=== PATIENT | male | born 1985 | race Caucasian/White ===

== ENCOUNTER 2017-04-05 02:14 | Emergency (ER) | payer SELFPAY ==
[~2017-04-05] VITALS: Ht 167.6 cm; Wt 71.0 kg
[2017-04-05 02:16] VITALS: Ht 167.6 cm; Wt 71.0 kg
[2017-04-05] MEDS ORDERED: ONDANSETRON (ODT) 4 MG TAB ODT STA (04:30)
[2017-04-05] MEDS ORDERED: BELLADONNA/PHENOBARBITAL TAB PO ONE (04:30)
[2017-04-05] MEDS ORDERED: LIDOCAINE/MYLANTA 40 ML BTL PO ONE (04:30)
--- NOTE | 2017-04-05 05:46 | ERD ---
ER Documentation Chief Complaint Date/Time DATE: 04/05/17 TIME: 05:45 Chief Complaint bib ambulance epigastric pain w/ anxiety symptoms HPI 32-year-old male brought in by ambulance for epigastric abdominal pain and anxiety symptoms. Patient denies any fevers or chills. Mild nausea but no vomiting. No other current complaints. Pain is mild to moderate in intensity burning in sensation located in the epigastric region ROS All systems reviewed and are negative except as per history of present illness. Allergies Allergies: Coded Allergies: No Known Allergy (Unverified , 05/15/14) PMhx/Soc Medical and Surgical Hx: pt denies Surgical Hx Hx Miscellaneous Medical Probl: Yes (peptic ulcer ds) Hx Alcohol Use: No Hx Substance Use: No Hx Tobacco Use: No Smoking Status: Never smoker Physical Exam Vitals Vital Signs Date Time Temp Pulse Resp B/P Pulse Ox O2 Delivery O2 Flow Rate FiO2 04/05/17 02:16 98.7 110 20 153/84 100 Physical Exam Const: [] Head: Atraumatic Eyes: Normal Conjunctiva ENT: Normal External Ears, Nose and Mouth. Neck: Full range of motion..~ No meningismus. Resp: Clear to auscultation bilaterally Cardio: Regular rate and rhythm, no murmurs Abd: Soft, non tender, non distended. Normal bowel sounds Skin: No petechiae or rashes Back: No midline or flank tenderness Ext: No cyanosis, or edema Neur: Awake and alert Psych: Normal Mood and Affect Results 24 hrs Current Medications Medications (Trade) Dose Ordered Sig/Tanvi Route PRN Reason Start Time Stop Time Status Last Admin Dose Admin Miscellaneous Medication (Gi Cocktail (2)) 40 ml ONCE ONCE PO 04/05/17 04:30 04/05/17 04:42 DC 04/05/17 04:53 Belladonna/ Phenobarbital () 2 tab ONCE ONCE PO 04/05/17 04:30 04/05/17 04:42 DC 04/05/17 04:53 Ondansetron HCl (Zofran Odt) 4 mg ONCE STAT ODT 04/05/17 04:30 04/05/17 04:42 DC 04/05/17 04:53 Procedures/MDM Medical decision-makin-year-old male with epigastric abdominal consistent with acute gastritis. At this point clinically stable. Patient will be admitted discharged home. Told to follow-up here in 8 hours for serial abdominal exams Departure Diagnosis: Primary Impression: Epigastric pain Condition: Stable [place]AMAN Apr 05, 2017 05:46
[2017-04-05] MEDS ORDERED: RANI150T9 PO (05:47)
[2017-04-05] MEDS ORDERED: ONDA4TAB14 PO (05:47)
[2017-04-05 06:08] VITALS: BP 126/72; PULSE 64; RESP 16; TEMP 98.2
== END 2017-04-05 07:43 | disposition home or self-care (01) ==
LOC: E/R 02:14
DX: R10.13 Epigastric pain (principal); R11.0 Nausea
CPT/HCPCS: 99283

== ENCOUNTER 2018-01-23 07:27 | Emergency (ER) | END 2018-01-23 09:03 | disposition home or self-care (01) ==

== ENCOUNTER 2018-02-16 03:50 | Emergency (ER) | END 2018-02-16 07:45 | disposition home or self-care (01) ==

== ENCOUNTER 2018-03-08 03:45 | Emergency (ER) | END 2018-03-08 05:42 | disposition home or self-care (01) ==

== ENCOUNTER 2018-04-21 02:41 | Emergency (ER) | END 2018-04-21 05:59 | disposition home or self-care (01) ==

== ENCOUNTER 2018-07-01 04:38 | Emergency (ER) | END 2018-07-01 05:50 | disposition home or self-care (01) ==

== ENCOUNTER 2018-10-16 02:47 | Emergency (ER) | payer SELFPAY ==
[~2018-10-16] VITALS: Ht 157.5 cm; Wt 68.2 kg
[~2018-10-16 02:47] MED LIST: BISA-57 PR; FLEETPED PR; PANT40TA3 PO; POLY17PO6 PO
[2018-10-16 03:09] VITALS: BP 146/92; PULSE 87; RESP 18; Ht 157.5 cm; Wt 68.2 kg
[2018-10-16] MEDS ORDERED: ONDANSETRON (ODT) 4 MG TAB ODT STA (04:46)
[2018-10-16] MEDS ORDERED: FAMOTIDINE 20 MG TAB PO ONE (05:00)
[2018-10-16] MEDS ORDERED: PANT40TA3 PO (05:41)
[2018-10-16] MEDS ORDERED: METO10TA92 PO (05:41)
[2018-10-16] MEDS ORDERED: ACET500C5 PO (05:41)
--- NOTE | 2018-10-16 05:44 | ERD ---
ER Documentation Chief Complaint Chief Complaint precordial/epigastric/upper back pains w/on/off arm tingling just now HPI 33-year-old male presents with epigastric pain radiating to his chest for the last several days. He has a history of hiatal hernia. An endoscopy in July. He is not currently taking any proton pump inhibitors. He was treated for the last 3 months for H. pylori. Denies fevers, lower abdominal pain, diarrhea. Has had nausea but no vomiting. Denies black or tarry stools or blood per rectum. ROS All systems reviewed and are negative except as per history of present illness. Medications Home Meds Active Scripts Metoclopramide* (Reglan*) 10 Mg Tablet, 10 MG PO Q6 PRN for NAUSEA AND/OR VOMITING, #20 TAB Prov:JOHNNY ADAN MD 10/16/18 Acetaminophen* (Tylophen*) 500 Mg Capsule, 1 CAP PO Q6H PRN for PAIN AND OR ELEVATED TEMP, #20 CAP Prov:JOHNNY ADAN MD 10/16/18 Pantoprazole* (Protonix*) 40 Mg Tablet., 40 MG PO DAILY, #20 TAB Prov:JOHNNY ADAN MD 10/16/18 Pantoprazole* (Protonix*) 40 Mg Tablet., 40 MG PO DAILY, #20 TAB Prov:LAURENT TIPTON MD 07/01/18 Polyethylene Glycol* (Miralax*) 17 Gm Powd.pack, 17 GM PO DAILY, #7 Prov:LAURENT TIPTON MD 07/01/18 Sod Phosphate/Sod Biphosphate* (Fleet* Enema Pediatric) 66.6 Ml Soln, 66.6 ML DC DAILY PRN for CONSTIPATION, #2 ENEMA Prov:LAURENT TIPTON MD 07/01/18 Bisacodyl* (Dulcolax*) 5 Mg Tablet., 10 MG DC DAILY PRN for CONSTIPATION, #5 TAB Prov:LAURENT TIPTON MD 07/01/18 Pantoprazole* (Protonix*) 40 Mg Tablet., 40 MG PO DAILY, #20 TAB Prov:LAURENT TIPTON MD 04/21/18 Allergies Allergies: Coded Allergies: No Known Allergy (Unverified , 05/15/14) PMhx/Soc Medical and Surgical Hx: pt denies Surgical Hx Hx Miscellaneous Medical Probl: Yes (peptic ulcer ds) Hx Alcohol Use: No Hx Substance Use: No Hx Tobacco Use: No Smoking Status: Never smoker FmHx Family History: No diabetes, No coronary disease, No other Physical Exam Vitals Vital Signs Date Temp Pulse Resp B/P (MAP) Pulse Ox O2 O2 Flow FiO2 Time Delivery Rate 10/16/18 97.5 87 18 146/92 100 03:09 (110) Physical Exam Const: No acute distress Head: Atraumatic Eyes: Normal Conjunctiva ENT: Normal External Ears, Nose and Mouth. Neck: Full range of motion. No meningismus. Resp: Clear to auscultation bilaterally. Mild tenderness in the epigastric area. No tenderness McBurney's point no Shin sign. Cardio: Regular rate and rhythm, no murmurs Abd: Soft, non tender, non distended. Normal bowel sounds Skin: No petechiae or rashes Back: No midline or flank tenderness Ext: No cyanosis, or edema Neur: Awake and alert Psych: Normal Mood and Affect Result Diagram: 10/16/187 10/16/18 0457 Results 24 hrs Laboratory Tests Test 10/16/18 04:57 White Blood Count 6.4 10^3/ul Red Blood Count 5.11 10^6/ul Hemoglobin 15.3 g/dl Hematocrit 44.2 % Mean Corpuscular Volume 86.5 fl Mean Corpuscular Hemoglobin 29.9 pg Mean Corpuscular Hemoglobin Concent 34.6 g/dl Red Cell Distribution Width 12.5 % Platelet Count 225 10^3/UL Mean Platelet Volume 9.3 fl Immature Granulocytes % 0.300 % Neutrophils % 59.2 % Lymphocytes % 31.4 % Monocytes % 8.4 % Eosinophils % 0.2 % Basophils % 0.5 % Nucleated Red Blood Cells % 0.0 /100WBC Immature Granulocytes # 0.020 10^3/ul Neutrophils # 3.8 10^3/ul Lymphocytes # 2.0 10^3/ul Monocytes # 0.5 10^3/ul Eosinophils # 0.0 10^3/ul Basophils # 0.0 10^3/ul Nucleated Red Blood Cells # 0.0 10^3/ul Sodium Level 143 mmol/L Potassium Level 3.6 mmol/L Chloride Level 103 mmol/L Carbon Dioxide Level 28 mmol/L Anion Gap 12 Blood Urea Nitrogen 15 mg/dl Creatinine 0.70 mg/dl Est Glomerular Filtrat Rate mL/min > 60 mL/min Glucose Level 92 mg/dl Calcium Level 10.1 mg/dl Total Bilirubin 0.4 mg/dl Direct Bilirubin 0.00 mg/dl Indirect Bilirubin 0.4 mg/dl Aspartate Amino Transf (AST/SGOT) 34 IU/L Alanine Aminotransferase (ALT/SGPT) 35 IU/L Alkaline Phosphatase 83 IU/L Total Protein 7.9 g/dl Albumin 4.9 g/dl Globulin 3.00 g/dl Albumin/Globulin Ratio 1.63 Lipase 54 U/L Current Medications Medications Dose Sig/Tanvi Start Time Status Last (Trade) Ordered Route PRN Stop Time Admin Dose Reason Admin Ondansetron 8 mg ONCE STAT 10/16/18 DC 10/16/18 HCl (Zofran ODT 04:46 04:58 Odt) 10/16/18 04:48 Famotidine 20 mg ONCE ONCE 10/16/18 DC 10/16/18 (Pepcid) PO 05:00 04:58 10/16/18 05:01 Procedures/MDM CBC and CMP normal. EKG: Rate/Rhythm: Normal Sinus Rhythm. Rate equals 88. QRS, ST, T-waves: No changes consistent w/ acute ischemia Impression: No evidence of ischemia or arrhythmia. Impression-normal EKG Patient presents with epigastric pain rating the chest. He has no signs of cardiac chest pain. He likely has recurrent GERD or symptoms related to his hiatal hernia. There is no signs of surgical abdomen, appendicitis, hepatobiliary disease, additional concerning signs or symptoms. Will treat with Protonix, Tylenol, Reglan, primary care follow-up and return precautions. The patient was stable with no new complaints during the ER course. Clinically, ther e is no current evidence to suggest meningitis, sepsis, acute abdomen, pneumonia, stroke, acute coronary syndrome, pulmonary embolism, aortic dissection or any other emergent condition appearing to require further evaluation or hospitalization. Patient counseled regarding my diagnostic impression and care plan. Prior to discharge all questions answered. Pt agrees with treatment plan and understands strict return precautions. Pt is instructed to follow up with primary care provider within 24-48 hours. Precautionary instructions provided including instructions to return to the ER if not improv ing or for any worsening or changing symptoms or concerns. Departure Diagnosis: Primary Impression: Gastritis Gastritis type: unspecified gastritis Chronicity: unspecified Gastritis bleeding: without bleeding Qualified Codes: K29.70 - Gastritis, un specified, without bleeding Condition: Stable Patient Instructions: Gerd (Adult) Referrals: NO PRIMARY,CARE PHYSICIAN (PCP) [facility] Usted se potter hecho un examen mdico de control que le indica que no est en lilian condicin que requiera tratamiento urgente en el Departamento de Emergencia. Un estudio ms profundo y el tratamiento de noble condicin pueden esperar sin ningn riesgo hasta que usted sea atendida/o en el consultorio de noble mdico o lilian clnica. Es responsabilidad suya arreglar lilian arturo para el seguimiento del shannan. MANEJO DE CONDICIONES NO URGENTES EN EL FUTURO 1) Si usted tiene un mdico de atencin primaria: Usted debera llamar a noble mdico de atencin primaria antes de venir al departamento de emergencia. Despus de las horas de consultorio, noble doctor o noble asociado/a est disponible por telfono. El mdico o enfermero de demario en el servicio telefnico puede asesorarle por jennie medio para atender el problema, o shannan contrario se puede programar lilian arturo. 2) Si usted no tiene un mdico de atencin primaria: Llame al mdico o clnica de referencia que aparece abajo teri las horas de c onsultorio para hacer lilian arturo para que le vean. CLINICAS: [facility] [phone] [facility] [place] [phone] [phone] [facility] [phone] [facility] [phone] [facility]. [phone] [address] Additional Instructions: Examines normal hoy. Cheque otro vez con noble doctor primario en el proximo ortega or regresa para mas o nueva simptomas. JOHNNY ADAN MD Oct 16, 2018 05:44
== END 2018-10-16 07:02 | disposition home or self-care (01) ==
LOC: FTE 02:47
DX: K29.70 Gastritis, unspecified, without bleeding (principal)
CPT/HCPCS: 80053; 83690; 85025; 93005

== ENCOUNTER 2018-11-28 05:28 | Emergency (ER) | payer SELFPAY ==
[~2018-11-28] VITALS: Ht 170.2 cm; Wt 69.4 kg
[~2018-11-28 05:28] MED LIST changes: +ACET500C5 PO; +METO10TA92 PO
[2018-11-28 05:30] VITALS: BP 139/90; PULSE 87; RESP 19; Ht 170.2 cm; Wt 69.4 kg
[2018-11-28] MEDS ORDERED: BELLADONNA/PHENOBARBITAL TAB PO STA (06:19)
[2018-11-28] MEDS ORDERED: LIDOCAINE/MYLANTA 40 ML BTL PO STA (06:19)
[2018-11-28] MEDS ORDERED: FAMO-96 PO (07:19)
[2018-11-28] MEDS ORDERED: HYDR-4011 PO (07:19)
--- NOTE | 2018-11-28 15:41 | ERD ---
ER Documentation Chief Complaint Chief Complaint BUE AND BLE PAIN/NUMBESS; STATES DUE TO HIS GASTRITIS? HPI 33-year-old male presenting with epigastric pain. Patient states he had a long history of gastritis since he is unsure if today's pain is due to his gastritis. He has occasional shortness of breath but denies any chest pain. He has not taken medications. He had a few episodes of vomiting that started today. Denies medication use. Denies other medical problems. NKDA. Surgical history denies. Social history denies ROS All systems reviewed and are negative except as per history of present illness. Medications Home Meds Active Scripts Hydrocodone/Acetaminophen ([place] 5-325 Tablet) 1 Each Tablet, 1 TAB PO Q6H PRN for PAIN, #7 TAB Prov:VLADIMIR CASON PA-C 11/28/18 Famotidine* (Pepcid*) 20 Mg Tablet, 20 MG PO BID for 4 Days, #30 TAB Prov:VLADIMIR CASON PA-C 11/28/18 Metoclopramide* (Reglan*) 10 Mg Tablet, 10 MG PO Q6 PRN for NAUSEA AND/OR VOMITING, #20 TAB Prov:JOHNNY ADAN MD 10/16/18 Acetaminophen* (Tylophen*) 500 Mg Capsule, 1 CAP PO Q6H PRN for PAIN AND OR ELEVATED TEMP, #20 CAP Prov:JOHNNY ADAN MD 10/16/18 Pantoprazole* (Protonix*) 40 Mg Tablet., 40 MG PO DAILY, #20 TAB Prov:JOHNNY ADAN MD 10/16/18 Pantoprazole* (Protonix*) 40 Mg Tablet., 40 MG PO DAILY, #20 TAB Prov:LAURENT TIPTON MD 07/01/18 Polyethylene Glycol* (Miralax*) 17 Gm Powd.pack, 17 GM PO DAILY, #7 Prov:LAURENT TIPTON MD 07/01/18 Sod Phosphate/Sod Biphosphate* (Fleet* Enema Pediatric) 66.6 Ml Soln, 66.[address] DAILY PRN for CONSTIPATION, #2 ENEMA Prov:LAURENT TIPTON MD 07/01/18 Bisacodyl* (Dulcolax*) 5 Mg Tablet., [address] DAILY PRN for CONSTIPATION, #5 TAB Prov:LAURENT TIPTON MD 07/01/18 Pantoprazole* (Protonix*) 40 Mg Tablet.dr, 40 MG PO DAILY, #20 TAB Prov:LAURENT TIPTON MD 04/21/18 Allergies Allergies: Coded Allergies: No Known Allergy (Unverified , 05/15/14) PMhx/Soc Hx Psychiatric Problems: No Hx Miscellaneous Medical Probl: Yes (peptic ulcer ds, DIAPHERMATIC HERNIA ) Hx Alcohol Use: No Hx Substance Use: No Hx Tobacco Use: No Smoking Status: Never smoker FmHx Family History: No diabetes, No coronary disease, No other Physical Exam Vitals Vital Signs Date Temp Pulse Resp B/P (MAP) Pulse Ox O2 O2 Flow FiO2 Time Delivery Rate 11/28/18 98.4 87 19 139/90 100 05:30 (106) Physical Exam GENERAL: The patient is well-appearing, well-nourished, in no acute distress HEENT: Atraumatic. Conjunctivae are pink. Pupils equal, round, and reactive to light. There is no scleral icterus. Tympanic membranes clear bilaterally. Oropharynx clear. CHEST: Clear to auscultation bilaterally. There are no rales, wheezes or rhonchi. HEART: Regular rate and rhythm. No murmurs, clicks, rubs or gallops ABDOMEN:Soft, nontender and nondistended. Good bowel sounds. No rebound or guarding. No gross peritonitis. No gross organomegaly or masses. Result Diagram: 11/28/18 0627 11/28/18 0627 Results 24 hrs Laboratory Tests Test 11/28/18 06:27 White Blood Count 7.7 10^3/ul Red Blood Count 5.38 10^6/ul Hemoglobin 16.0 g/dl Hematocrit 45.9 % Mean Corpuscular Volume 85.3 fl Mean Corpuscular Hemoglobin 29.7 pg Mean Corpuscular Hemoglobin Concent 34.9 g/dl Red Cell Distribution Width 12.4 % Platelet Count 231 10^3/UL Mean Platelet Volume 9.1 fl Immature Granulocytes % 0.400 % Neutrophils % 58.8 % Lymphocytes % 31.8 % Monocytes % 8.4 % Eosinophils % 0.1 % Basophils % 0.5 % Nucleated Red Blood Cells % 0.0 /100WBC Immature Granulocytes # 0.030 10^3/ul Neutrophils # 4.5 10^3/ul Lymphocytes # 2.5 10^3/ul Monocytes # 0.7 10^3/ul Eosinophils # 0.0 10^3/ul Basophils # 0.0 10^3/ul Nucleated Red Blood Cells # 0.0 10^3/ul Urine Color COLORLESS Urine Clarity CLEAR Urine pH 8.0 Urine Specific [place] 1.001 Urine Ketones NEGATIVE mg/dL Urine Nitrite NEGATIVE mg/dL Urine Bilirubin NEGATIVE mg/dL Urine Urobilinogen NEGATIVE mg/dL Urine Leukocyte Esterase NEGATIVE Hood/ul Urine Microscopic RBC 0 /HPF Urine Microscopic WBC 0 /HPF Urine Hemoglobin 2+ mg/dL Urine Glucose NEGATIVE mg/dL Urine Total Protein NEGATIVE mg/dl Sodium Level 143 mmol/L Potassium Level 3.6 mmol/L Chloride Level 100 mmol/L Carbon Dioxide Level 30 mmol/L Anion Gap 13 Blood Urea Nitrogen 9 mg/dl Creatinine 0.72 mg/dl Est Glomerular Filtrat Rate mL/min > 60 mL/min Glucose Level 95 mg/dl Calcium Level 10.6 mg/dl Total Bilirubin 0.5 mg/dl Direct Bilirubin 0.00 mg/dl Indirect Bilirubin 0.5 mg/dl Aspartate Amino Transf (AST/SGOT) 53 IU/L Alanine Aminotransferase (ALT/SGPT) 72 IU/L Alkaline Phosphatase 88 IU/L Total Protein 8.1 g/dl Albumin 5.0 g/dl Globulin 3.10 g/dl Albumin/Globulin Ratio 1.61 Lipase 49 U/L Current Medications Medications Dose Sig/Tanvi Start Time Status Last (Trade) Ordered Route PRN Stop Time Admin Dose Reason Admin 40 ml ONCE STAT 11/28/18 DC 11/28/18 Miscellaneous PO 06:19 06:25 Medication 11/28/18 06:21 (Gi Cocktail (2)) Belladonna/ 2 tab ONCE STAT 11/28/18 DC 11/28/18 Phenobarbital PO 06:19 06:25 () 11/28/18 06:21 Procedures/MDM DIAGNOSTIC IMAGING REPORT Patient: SUMANTH MONCADA : 1985 Age: 33 Sex: M MR #: [id number] DOS: 11/28/18618 Ordering MD: OMEGA CASON PA-C Location: E Room/Bed: PROCEDURE: XR Chest. CLINICAL INDICATION: Abdominal pain TECHNIQUE: Single frontal view of the chest was obtained COMPARISON: 03/08/18 FINDINGS: The heart and mediastinum are within normal limits. The lungs are clear. There is no pleural effusion or pneumothorax. RPTAT: AA IMPRESSION: No acute disease. EKG: Rate/Rhythm: 70 bpm normal Sinus Rhythm QRS, ST, T-waves: No changes consistent w/ acute ischemia Impression: No evidence of ischemia or arrhythmia MDM: 33-year-old male presenting with epigastric pain. I have low suspicion for choledocholithiasis, cholecystitis, cholangitis or pancreatitis. Patient is discharged with strict ER precautions. Patient likely has pain secondary to his chronic gastritis. I do not feel there is indication for further blood work or imaging. Patient is discharged with strict ER precautions and told to follow-up with primary care within 1 to 2 days for close evaluation. She is told symptoms change or worsen to return immediately to the ER. All questions answered at discharge Departure Diagnosis: Primary Impression: Gastritis Condition: Stable Patient Instructions: Gastritis (Adult) Referrals: [facility]) Usted se potter hecho un examen mdico de control que le indica que no est en lilian condicin que requiera tratamiento urgente en el Departamento de Emergencia. Un estudio ms profundo y el tratamiento de noble condicin pueden esperar sin ningn riesgo hasta que usted sea atendida/o en el consultorio de noble mdico o lilian clnica. Es responsabilidad suya arreglar lilian arturo para el seguimiento del shannan. MANEJO DE CONDICIONES NO URGENTES EN EL FUTURO 1) Si usted tiene un mdico de atencin primaria: Usted debera llamar a noble mdico de atencin primaria antes de venir al departamento de emergencia. Despus de las horas de consultorio, noble doctor o noble asociado/a est disponible por telfono. El mdico o enfermero de demario en el servicio telefnico puede asesorarle por jennie medio para atender el problema, o shannan contrario se puede programar lilian arturo. 2) Si usted no tiene un mdico de atencin primaria: Llame al mdico o clnica de referencia que aparece abajo teri las horas de consultorio para hacer lilian arturo para que le vean. CLINICAS: [facility] [phone] [facility] [facility] [phone] [facility] [phone] [place] [phone] [place] [phone] [place] [phone] [address] Additional Instructions: FOLLOW UP WITH YOUR PRIMARY CARE PHYSICIAN TOMORROW.Return to this facility if you are not improving as expected. VLADIMIR CASON PA-C Nov 28, 2018 15:41
== END 2018-11-28 07:24 | disposition home or self-care (01) ==
LOC: FTE 05:28
DX: K29.70 Gastritis, unspecified, without bleeding (principal)
CPT/HCPCS: 36415; 71045; 80053; 81001; 83690; 85025; 93005

== ENCOUNTER 2019-01-30 22:56 | Emergency (ER) | payer SELFPAY ==
[~2019-01-30] VITALS: Ht 160 cm; Wt 71.1 kg
[~2019-01-30 22:56] MED LIST changes: +FAMO-96 PO; +HYDR-4011 PO
[2019-01-30 22:58] VITALS: Ht 160 cm; Wt 71.1 kg
[2019-01-30] MEDS ORDERED: ONDANSETRON 4 MG INJ IV STA (23:46)
[2019-01-30] MEDS ORDERED: SOD CHLORIDE 0.9% 1,000 ML IV STA (23:46)
[2019-01-31] MEDS ORDERED: ONDA4TAB14 PO (01:47)
[2019-01-31] MEDS ORDERED: ACETAMINOPHEN 500 MG TAB PO STA (01:58)
--- NOTE | 2019-01-31 02:34 | ERD ---
ER Documentation Chief Complaint Chief Complaint CP/AP while playing soccer 1 hour ago. hx of gastritis/hernia. no SOB/n/v HPI Patient is a 33-year-old male, past medical history of gastritis, "abdominal hernia" who presents to the ER for concerns of epigastric pain and chest pain for the last hour. Pain is localized to mid sternum and epigastric region. Patient states pain is sharp and 8/10. Patient states that the pain started after playing soccer. Patient states he has had similar symptoms in the past. Patient denies any pleuritic pain. Patient reports feeling his "heart racing." Patient denies any associated diaphoresis, shortness of breath, left upper extremity pain or loss of consciousness. Patient states he has vomited 8 times since this time symptoms started. Patient denies any lower abdominal pain. He denies any fevers or chills. Patient does admit to drinking coffee daily. He denies any alcohol use. Patient states he was also having some tingling in his bilateral hands. Patient states he has felt anxious over the last few days. Patient denies any homicidal or suicidal ideations. ROS All systems reviewed and are negative except as per history of present illness. Medications Home Meds Active Scripts Ondansetron (Ondansetron Odt) 4 Mg Tab.rapdis, 4 MG PO Q6H PRN for NAUSEA AND/OR VOMITING, #10 TAB Prov:CHRISTOFER TOM PA-C 01/31/19 Hydrocodone/Acetaminophen (Justice 5-325 Tablet) 1 Each Tablet, 1 TAB PO Q6H PRN for PAIN, #7 TAB Prov:VLADIMIR CASON PA-C 11/28/18 Famotidine* (Pepcid*) 20 Mg Tablet, 20 MG PO BID for 4 Days, #30 TAB Prov:VLADIMIR CASON PA-C 11/28/18 Metoclopramide* (Reglan*) 10 Mg Tablet, 10 MG PO Q6 PRN for NAUSEA AND/OR VOMITING, #20 TAB Prov:JOHNNY ADAN MD 10/16/18 Acetaminophen* (Tylophen*) 500 Mg Capsule, 1 CAP PO Q6H PRN for PAIN AND OR ELEVATED TEMP, #20 CAP Prov:JOHNNY ADAN MD 10/16/18 Pantoprazole* (Protonix*) 40 Mg Tablet., 40 MG PO DAILY, #20 TAB Prov:JOHNNY ADAN MD 10/16/18 Pantoprazole* (Protonix*) 40 Mg Tablet., 40 MG PO DAILY, #20 TAB Prov:LAURENT TIPTON MD 07/01/18 Polyethylene Glycol* (Miralax*) 17 Gm Powd.pack, 17 GM PO DAILY, #7 Prov:LAURENT TIPTON MD 07/01/18 Sod Phosphate/Sod Biphosphate* (Fleet* Enema Pediatric) 66.6 Ml Soln, 66.6 ML PA DAILY PRN for CONSTIPATION, #2 ENEMA Prov:LAURENT TIPTON MD 07/01/18 Bisacodyl* (Dulcolax*) 5 Mg Tablet., 10 MG PA DAILY PRN for CONSTIPATION, #5 TAB Prov:LAURENT TIPTON MD 07/01/18 Pantoprazole* (Protonix*) 40 Mg Tablet., 40 MG PO DAILY, #20 TAB Prov:LAURENT TIPTON MD 04/21/18 Allergies Allergies: Coded Allergies: No Known Allergy (Unverified , 05/15/14) PMhx/Soc Medical and Surgical Hx: pt denies Surgical Hx History of Surgery: No Anesthesia Reaction: No Hx Neurological Disorder: No Hx Respiratory Disorders: No Hx Cardiac Disorders: No Hx Psychiatric Problems: No Hx Miscellaneous Medical Probl: Yes (peptic ulcer ds, DIAPHERMATIC HERNIA ) Hx Alcohol Use: No Hx Substance Use: No Hx Tobacco Use: No Smoking Status: Never smoker FmHx Family History: No diabetes Physical Exam Vitals Vital Signs Date Temp Pulse Resp B/P (MAP) Pulse Ox O2 O2 Flow FiO2 Time Delivery Rate 01/30/19 88 23:55 01/30/19 97.9 108 16 164/96 98 22:58 (118) Physical Exam GENERAL: Well-developed, well-nourished male. Appears anxious. Speaking in full sentences HEAD: Normocephalic, atraumatic. EYES: Pupils are equally reactive bilaterally. EOMs grossly intact. No conjunctival erythema. ENT: Moist mucous membranes. No uvula deviation. No kissing tonsils. NECK: Supple. No meningismus. Normal range of motion of the neck. LUNG: Clear to auscultation bilaterally. No rhonchi, wheezing, rales or coarse breath sounds. HEART: Regular rate and rhythm. No murmurs, rubs or gallops. Equal pulses in bilateral upper extremities. EXTREMITIES: Equal pulses bilaterally. No peripheral clubbing, cyanosis or edema. No unilateral leg swelling. NEUROLOGIC: Alert and oriented. Moving all four extremities without any difficulty. Normal speech. Steady gait. SKIN: Normal color. Warm and dry. No rashes or lesions. Result Diagram: 01/31/197 01/31/196 Results 24 hrs Laboratory Tests Test 01/31/19 00:07 White Blood Count 8.2 10^3/ul Red Blood Count 5.09 10^6/ul Hemoglobin 15.4 g/dl Hematocrit 42.7 % Mean Corpuscular Volume 83.9 fl Mean Corpuscular Hemoglobin 30.3 pg Mean Corpuscular Hemoglobin Concent 36.1 g/dl Red Cell Distribution Width 12.3 % Platelet Count 251 10^3/UL Mean Platelet Volume 9.2 fl Immature Granulocytes % 0.100 % Neutrophils % 69.6 % Lymphocytes % 21.4 % Monocytes % 8.3 % Eosinophils % 0.1 % Basophils % 0.5 % Nucleated Red Blood Cells % 0.0 /100WBC Immature Granulocytes # 0.010 10^3/ul Neutrophils # 5.7 10^3/ul Lymphocytes # 1.8 10^3/ul Monocytes # 0.7 10^3/ul Eosinophils # 0.0 10^3/ul Basophils # 0.0 10^3/ul Nucleated Red Blood Cells # 0.0 10^3/ul Urine Color COLORLESS Urine Clarity CLEAR Urine pH 7.0 Urine Specific [place] 1.001 Urine Ketones NEGATIVE mg/dL Urine Nitrite NEGATIVE mg/dL Urine Bilirubin NEGATIVE mg/dL Urine Urobilinogen NEGATIVE mg/dL Urine Leukocyte Esterase NEGATIVE Hood/ul Urine Hemoglobin NEGATIVE mg/dL Urine Glucose NEGATIVE mg/dL Urine Total Protein NEGATIVE mg/dl Sodium Level 140 mmol/L Potassium Level 3.3 mmol/L Chloride Level 101 mmol/L Carbon Dioxide Level 27 mmol/L Anion Gap 12 Blood Urea Nitrogen 11 mg/dl Creatinine 0.80 mg/dl Est Glomerular Filtrat Rate mL/min > 60 mL/min Glucose Level 98 mg/dl Calcium Level 9.6 mg/dl Total Bilirubin 0.7 mg/dl Direct Bilirubin 0.00 mg/dl Indirect Bilirubin 0.7 mg/dl Aspartate Amino Transf (AST/SGOT) 46 IU/L Alanine Aminotransferase (ALT/SGPT) 46 IU/L Alkaline Phosphatase 79 IU/L Troponin I < 0.012 ng/ml Total Protein 8.0 g/dl Albumin 4.8 g/dl Globulin 3.20 g/dl Albumin/Globulin Ratio 1.50 Lipase 55 U/L Current Medications Medications Dose Sig/Tanvi Start Time Status Last (Trade) Ordered Route PRN Stop Time Admin Dose Reason Admin Sodium 1,000 ml @ Q1H STAT 01/30/19 DC 01/31/19 Chloride 1,000 mls/hr IV 23:46 01/31/19 00:19 00:45 Ondansetron 4 mg ONCE STAT 01/30/19 DC 01/31/19 HCl (Zofran IV 23:46 01/30/19 00:18 Inj) 23:48 1,000 mg ONCE STAT 01/31/19 DC 01/31/19 Acetaminophen PO 01:58 01/31/19 02:10 (Tylenol 01:59 Tab) Procedures/MDM ED COURSE: The patient was stable throughout ED course. I kept the patient and/or family informed of laboratory and diagnostic imaging results throughout the ED course. EKG #1 at 23:01. Read by Dr. Villegas, attending physician. EKG shows sinus tachycardia at 111 bpm No arrhythmias, acute ST elevations. EKG #2 at 2:02. Read by Dr. Tipton, attending physician. EKG shows sinus bradycardia at 56 bpm No arrhythmias, acute ST elevations. DIAGNOSTIC IMAGING: Read by radiologist. Patient: SUMANTH MONCADA : 1985 Age: 33 Sex: M [id number] [facility]: [id number] DOS: 01/31/19 0052 Ordering MD: CHRISTOFER TOM PA-C Location: [facility] Room/Bed: PROCEDURE: XR Chest. CLINICAL INDICATION: Chest pain. TECHNIQUE: Single frontal view. COMPARISON: 11/28/2018. FINDINGS: The lungs are clear. The heart size is normal. There is no pleural effusion. There is no pneumothorax. IMPRESSION: 1. Normal chest radiograph. RPTAT: QQ .Johnny Garcia MD, Date Time Electronically viewed and signed by .Johnny Garcia MD, MD on 01/31/2019 01:42 .R/ CC: CHRISTOFER TOM LUKE [phone] MEDICATIONS GIVEN: IV fluids, Zofran, Tylenol Patient tolerated medication well with no adverse reactions. Patient reported improvement in pain. MEDICAL DECISION MAKING: This is a 33-year-old male, past medical history of gastritis, "abdominal hernia" presents to the ER for concerns of chest pain and epigastric pain which started 1 hour ago. Patient also reports vomiting. Patient states he has had similar symptoms in the past. Patient states earlier today he was having some numbness and tingling in his bilateral hands. Patient states he does feel anxious at times. Vital signs were reviewed. Patient has afebrile. Patient was not hypoxic. Patient's pulse was noted to be 108 in triage for the time of my examination, vital signs were reassessed and patient's pulse was noted to be 88 bpm. Initial EKG in triage showed sinus tachycardia [address] elevations noted. Reviewed by ED attending Dr. Villegas. IV line was established. Blood work was obtained. CBC showed no evidence of systemic infection or severe anemia. CMP showed no evidence of electrolyte abnormalities except for potassium 3.3, severe acidosis, alkalosis, renal failure, or liver disease. Troponin was within normal limits. Lipase showed no evidence of acute pancreatitis. UA showed no evidence of acute infection or hematuria. Chest x-ray was unremarkable. Patient was given IV fluids and Zofran. No additional episodes of vomiting throughout the ED course. Upon reexamination, patient stated that he is pain was improved and rated it to be at 4 out of 10. Patient was given Tylenol at that time. Repeat EKG was obtained at that time and it showed sinus bradycardia of 56 bpm. This EKG was reviewed by Dr. Tipton. Patient's HEART score was noted to be low. Low suspicion for acute cardiac event in the next 6 weeks. Review of the patient's medical records show that patient has been seen here numerous times for similar symptoms. Case was discussed with supervising physician Dr. Tipton, who agreed that patient was stable for outpatient management. At this time the patient's presentation is most consistent with epigastric pain and chest pain. Differential diagnoses include but was not limited to acute coronary syndrome, aortic dissection, pneumothorax, pleural effusion, PE, AAA, mesenteric ischemia, lower lobe pneumonia, DKA, bowel perforation, cholecystitis, choledocholithiasis, ascending cholangitis, hepatic abscess, pancreatitis, PUD, gastritis, GERD, splenic rupture, diverticulitis, UTI, pyelonephritis, nephrolithiasis, appendicitis, constipation, testicular torsion, epididymitis, urethritis, or prostatitis. Patient was nontoxic, [id number] prior to discharge. Patient was advised to follow-up with cleaner and dyer and GI specialist for further management of his symptoms. PRESCRIPTIONS: Zofran DISCHARGE: At this time, patient is stable for discharge and outpatient management. I have instructed the patient to follow-up with his/her primary care physician in 1-2 days. I have instructed the patient to promptly return to the ER at any time for any new or worsening symptoms including increased pain, nausea, vomiting, diarrhea, fever, weakness or LOC. The patient and/or family expressed understan ding of and agreement with this plan. All questions were answered. Home care instructions were provided. Patients blood pressure was elevated (>120/80) but appears stable without evidence of hypertensive emergency, hypertensive urgency or end-organ failure. I had discussion with the patient about the risks of hypertension. I have advised the patient to follow up with his/her primary care physician for outpatient monitoring and treatment for hypertension in 2-3 days. I have instructed the patient to return to the ER for any new or worsening symptoms including chest pain, shortness of breath, headache, blurred vision, confusion, nausea, vomiting or LOC. Disclaimer: Inadvertent spelling and grammatical errors are likely due to EHR/dictation software use and do not reflect on the overall quality of patient care. Also, please note that the electronic time recorded on this note does not necessarily reflect the actual time of the patient encounter. Departure Diagnosis: Primary Impression: Multiple complaints Additional Impressions: History of gastritis Palpitations Epigastric pain Vomiting Vomiting type: unspecified Vomiting Intractability: unspecified Nausea presence: unspecified Qualified Codes: R11.10 - Vomiting, unspecified Paresthesias/numbness Condition: Fair Patient Instructions: Chest Pain, Uncertain Cause, Epigastric Pain (Uncertain Cause) Referrals: COMMUNITY CLINICS YOU HAVE RECEIVED A MEDICAL SCREENING EXAM AND THE RESULTS INDICATE THAT YOU DO NOT HAVE A CONDITION THAT REQUIRES URGENT TREATMENT IN THE EMERGENCY DEPARTMENT. FURTHER EVALUATION AND TREATMENT OF YOUR CONDITION CAN WAIT UNTIL YOU ARE SEEN IN YOUR DOCTORS OFFICE WITHIN THE NEXT 1-2 DAYS. IT IS YOUR RESPONSIBILITY TO MAKE AN APPOINTMENT FOR FOLOW-UP CARE. IF YOU HAVE A PRIMARY DOCTOR --you should call your primary doctor and schedule an appointment IF YOU DO NOT HAVE A PRIMARY DOCTOR YOU CAN CALL OUR PHYSICIAN REFERRAL HOTLINE AT IF YOU CAN NOT AFFORD TO SEE A PHYSICIAN YOU CAN CHOSE FROM THE FOLLOWING [facility] [address] [facility]. [facility] [address] [facility] [address] [facility] [address] [facility] [address] [facility]. [facility] [address] [facility]. [facility] YOU HAVE RECEIVED A MEDICAL SCREENING EXAM AND THE RESULTS INDICATE THAT YOU DO NOT HAVE A CONDITION THAT REQUIRES URGENT TREATMENT IN THE EMERGENCY DEPARTMENT. FURTHER EVALUATION AND TREATMENT OF YOUR CONDITION CAN WAIT UNTIL YOU ARE SEEN IN YOUR DOCTORS OFFICE WITHIN THE NEXT 1-2 DAYS. IT IS YOUR RESPONSIBILITY TO MAKE AN APPOINTMENT FOR FOLOW-UP CARE. IF YOU HAVE A PRIMARY DOCTOR --you should call your primary doctor and schedule and appointment IF YOU DO NOT HAVE A PRIMARY DOCTOR YOU CAN CALL OUR PHYSICIAN REFERRAL HOTLINE AT . IF YOU CAN NOT AFFORD TO SEE A PHYSICIAN YOU CAN CHOSE FROM THE FOLLOWING [facility] INSTITUTIONS: [facility] [address] [place] [address] [facility] [address] [place] [address] [facility] + [facility] [address] [place] [address] Additional Instructions: Follow-up with a GI specialist on an outpatient basis. Avoid spicy, fried, acidic foods and caffeinated beverages. Follow-up with cleaner and dyer for further management of your palpitations. Call your primary care doctor TOMORROW for an appointment during the next 1-2 days.See the doctor sooner or return here if your condition worsens before your appointment time. CHRISTOFER TOM PA-C Jan 31, 2019 02:28
[2019-01-31 02:47] VITALS: BP 137/89; PULSE 71; RESP 18
== END 2019-01-31 02:48 | disposition home or self-care (01) ==
LOC: FTE 22:56
DX: R07.9 Chest pain, unspecified (principal); R00.2 Palpitations; R10.13 Epigastric pain; R11.10 Vomiting, unspecified; R20.2 Paresthesia of skin; Z87.19 Personal history of other diseases of the digestive system
CPT/HCPCS: 36415; 71045; 80053; 81003; 83690; 84484; 85025; 93005; 96374; 99285; J2405; J7030